=== PATIENT | female | born 1940 | race Caucasian/White ===

== ENCOUNTER → 2017-06-16 | Outpatient (CLI) | payer MEDICARE, OTHER ==
[~2017-06-16] MED LIST: AMBEREN; ARTIFICIAL TEA1 EAC1 OPHTHALMIC; B12INJ; BUSPIRONE HCL5 MG PO; BYSTOLIC 5 MG5 M1 PO; BYSTOLIC10 MG PO; CATAPRES0.1 MG PO; CENTRUM SILVER1 EAC4 PO; CITRACAL + D C1 EACH; CLONIDINE0.1 PO; DORZOLAMIDE HCL10 ML OP; FISHOIL; HYDRALAZINE 2525 MG PO; IRON; LATANOPROST 0.2.5 ML OP; LISINOPRIL10 MG; LUMIGAN2.5 M1; MACROBID 100 M100 M1 PO; MIRALAX17 GM PO; NEXIUM40 MG PO; NORVASC 5 MG TAB5 MG PO; NORVASC5 MG PO; PERCOCET 5-3251 EACH PO; PYRIDIUM200 M1 PO; REGLAN 10 MG TA10 MG PO; SYNTHROID75 MCG; SYNTHROID75 MCG PO; SYSTANE BALANCE10 ML OP; TOPROL XL50 MG; TRAVATAN Z2.5 ML OPHTHALMIC; TRUSOPT OCUMETE10 M1; TUMS PO; VITAMIN B-12500 MCG PO; XANAX 0.25 MG0.25 MG PO; ZOCOR 10 MG TAB10 MG PO
== END ==
LOC: M.RAD 16:25
DX: M25.522 Pain in left elbow (principal); K21.9 Gastro-esophageal reflux disease without esophagitis; I10 Essential (primary) hypertension; E03.9 Hypothyroidism, unspecified; F41.1 Generalized anxiety disorder

== ENCOUNTER 2018-09-15 12:39 | Emergency (ER) | payer MEDICARE, OTHER ==
[~2018-09-15] VITALS: Ht 162.6 cm; Wt 70.3 kg
[2018-09-15] MEDS ORDERED: ZOFRAN ODT4 MG PO (13:57)
[2018-09-15] MEDS ORDERED: AUGMENTIN 500-1 EACH PO (13:57)
[2018-09-15 14:24] VITALS: BP 134/63
--- NOTE | 2018-09-15 16:12 | EKG ---
[place] [address] ELECTROCARDIOGRAM REPORT Name: CHANDU CASONENE Room: [facility]#: [id number] Admission: 09/15/18 Attend Phys: Discharge: 09/15/18 Date of : 40 Report #: [id number] THIS REPORT FOR: //name// [facility] ED Test Date: 2018-09-15 Test Time: 13:13:09 Pat Name: ARIEL CASON Department: Room: Gender: F Machine Finisher: MAURO : 1940 Requested By: Bandar Guerra Order Number: [id number] MD: Bean Lauren Measurements Intervals [place] Rate: 74 P: 46 MI: 154 QRS: 3 QRSD: 103 T: 29 QT: 400 QTc: 444 Interpretive Statements Sinus rhythm Abnormal R-wave progression, early transition Compared to ECG 06/18/2015 13:41:35 No significant changes Electronically Signed On 09-15-2018 16:12:10 CDT by Bean Lauren [email or web address] <ELECTRONICALLY SIGNED> By: Bean Lauren MD, [facility] 09/15/18 1612 1313 12 Bean Lauren MD, FACC /EPI
== END 2018-09-15 14:10 | disposition home or self-care (01) ==
LOC: M.ERS 12:39
DX: R11.2 Nausea with vomiting, unspecified (principal); T37.8X5A Adverse effect of other specified systemic anti-infectives and antiparasitics, initial encounter; N39.0 Urinary tract infection, site not specified; K64.9 Unspecified hemorrhoids; I10 Essential (primary) hypertension; E78.5 Hyperlipidemia, unspecified; E03.9 Hypothyroidism, unspecified; Z88.2 Allergy status to sulfonamides; Z88.1 Allergy status to other antibiotic agents; Y92.89 Other specified places as the place of occurrence of the external cause

== ENCOUNTER 2019-02-15 13:21 | Inpatient (IN) | payer MEDICARE, OTHER ==
[~2019-02-15] VITALS: Ht 162.6 cm; Wt 74.4 kg
[~2019-02-15 13:21] MED LIST changes: +AUGMENTIN 500-1 EACH PO; -NORVASC 5 MG TAB5 MG PO; +ZOFRAN ODT4 MG PO
[2019-02-15 13:25] VITALS: BP 181/75
[2019-02-15 13:46] LABS: ABSOLUTE EOSINOPHILS 0.2 thou/uL (0.0-0.7); ABSOLUTE LYMPHOCYTES 2.1 thou/uL (0.8-5.3); ABSOLUTE MONOCYTES 0.5 thou/uL (0.0-1.2); ABSOLUTE NEUTROPHILS 3.7 thou/uL (1.6-8.1); BASOPHILS 0.3 %; EOSINOPHILS 3.4 %; HEMATOCRIT 43.8 % (37.0-47.0); HEMOGLOBIN 14.5 gm/dL (12.0-15.0); LYMPHOCYTES 32.5 %; MCH 29.2 pg (26.0-34.0); MCHC 33.1 g/dL (28.0-37.0); MONOCYTES 7.2 %; MPV 7.6 fl. (7.2-11.1); NUCLEATED RBCS 0 /100WBC; PLATELET COUNT* 304 thou/uL (150-400); POLYS 56.6 %; RBC 4.97 mil/uL (4.20-5.00); RDW-CV 14.9 % (10.5-14.5); WBC 6.5 thou/uL (4.0-11.0)
[2019-02-15 13:55] LABS: CALCIUM 9.2 mg/dL (8.5-10.1); CREATININE 0.9 mg/dL (0.6-1.3); POTASSIUM 3.5 mmol/L (3.5-5.1)
[2019-02-15 14:07] LABS: ALBUMIN 4.1 g/dL (3.4-5.0); MAGNESIUM 2.1 mg/dL (1.8-2.4); TOTAL BILIRUBIN 0.4 mg/dL (<0.1-1.0)
--- NOTE | 2019-02-15 14:42 | EKG ---
[place] [address] ELECTROCARDIOGRAM REPORT Name: CHANDU CASONENE Room: [facility]#: [id number] Admission: 02/15/19 Attend Phys: Discharge: Date of : 40 Report #: [id number] THIS REPORT FOR: //name// [facility] ED Test Date: 2019-02-15 Test Time: 13:28:55 Pat Name: ARIEL CASON Department: Room: Gender: F Shop Coordinator: NIELS : 1940 Requested By: Maycol Chow Order Number: [id number] MD: Bean Lauren Measurements Intervals [place] Rate: 76 P: 55 WA: 153 QRS: 10 QRSD: 99 T: 38 QT: 379 QTc: 427 Interpretive Statements Sinus rhythm Sinus pause Minimal ST depression, lateral leads Compared to ECG 09/15/2018 13:13:09 Sinus pause now present ST (T wave) deviation now present Electronically Signed On 02-15-2019 14:42:45 WAFER MACHINE OPERATOR by Bean Lauren [email or web address] <ELECTRONICALLY SIGNED> By: Bean Lauren MD, [facility] 02/15/19 1442 1328 132 Bean Lauren MD, FACC /EPI
[2019-02-15 17:51] VITALS: BP 125/60
[2019-02-15 18:00] VITALS: BP 148/79; BP 155/78; BP 167/66
[2019-02-15 20:30] VITALS: BP 125/53
[2019-02-16] VITALS: BP 94/40
[2019-02-16 04:30] VITALS: BP 113/52
[2019-02-16 05:41] LABS: HEMATOCRIT 37.4 % (37.0-47.0); MCH 28.7 pg (26.0-34.0); MCHC 32.6 g/dL (28.0-37.0); MCV 88.1 fL (80.0-100.0); RBC 4.25 mil/uL (4.20-5.00); WBC 5.5 thou/uL (4.0-11.0)
[2019-02-16 05:51] LABS: HEMOGLOBIN 12.2 gm/dL (12.0-15.0)
[2019-02-16 05:55] LABS: ANION GAP 6 mmol/L (7-16); BUN 22 mg/dL (7-18); CALCIUM 8.7 mg/dL (8.5-10.1); CHLORIDE 108 mmol/L (98-107); CHOLESTEROL 164 mg/dL (<200); CO2 27 mmol/L (21-32); GLUCOSE 103 mg/dL (70-99); HDL CHOLESTEROL 41 mg/dL (>40); LDL CHOLESTEROL 95 mg/dL (<100); MAGNESIUM 2.2 mg/dL (1.8-2.4); POTASSIUM 3.6 mmol/L (3.5-5.1); SODIUM 141 mmol/L (136-145); TRIGLYCERIDE 142 mg/dL (<150); VLDL 28 mg/dL (<40)
[2019-02-16 05:57] LABS: SERUM ASSESSMENT Clear
[2019-02-16 08:00] VITALS: BP 120/50
[2019-02-16 12:00] VITALS: BP 114/54
[2019-02-16 17:32] VITALS: BP 115/43
--- NOTE | 2019-02-16 17:32 | 2DMMODE ---
[place] [address] 2 D/M-MODE ECHOCARDIOGRAM Name: CASON,ARIEL Room: [place] [address] ADM IN [facility]#: [id number] Admission: 02/15/19 Attend Phys: Mary Mccoy, Discharge: Date of : 40 Date of Service: 02/16/19 1732 Report #: [id number] THIS REPORT FOR: //name// APPROVED REPORT Study performed: 02/16/2019 13:58:17 EXAM: Comprehensive 2D, Doppler, and color-flow Echocardiogram Patient Location: In-Patient Room #: [facility] Status: routine BSA: 1.80 HR: 70 bpm BP: 113/52 mmHg Rhythm: NSR Other Information Study Quality: Good Indications Chest Pain 2D Dimensions IVSd: 9.29 (7-11mm) LVOT Diam: 20.00 (18-24mm) LVDd: 46.52 mm PWd: 9.47 (7-11mm) Ascending Ao: 30.46 (22-36mm) LVDs: 29.33 (25-40mm) Aortic Root: 30.65 mm Volumes Left Atrial Volume (Systole) LA ESV Index: 31.80 mL/m2 Aortic Valve AoV Peak Luis.: 1.28 m/s AO Peak Gr.: 6.59 mmHg LVOT Max P.77 mmHg AO Mean Gr.: 2.97 mmHg LVOT Mean P.57 mmHg LVOT Max V: 1.20 m/s AO V2 VTI: 22.51 cm LVOT Mean V: 0.73 m/s SHANTI (VTI): 3.48 cm2 LVOT V1 VTI: 24.89 cm AI Otero: 2.20 m/s2 AI PHT: 474.24 ms Mitral Valve E/A Ratio: 0.66 [place] [address] 2 D/M-MODE ECHOCARDIOGRAM Name: ARIEL CASON Room: [address] IN [facility]#: [id number] Admission: 02/15/19 Attend Phys: Mary Mccoy, Discharge: Date of : 40 Date of Service: 02/16/19 1732 Report #: [id number] MV Decel. Time: 252.78 ms MV E Max Luis.: 0.63 m/s MV PHT: 73.31 ms MVA (PHT): 3.00 cm2 TDI E/Lateral E': 5.73 E/Medial E': 7.00 Medial E' Luis.: 0.09 m/s Lateral E' Luis.: 0.11 m/s Pulmonary Valve PV Peak Luis.: 0.81 m/s PV Peak Gr.: 2.62 mmHg Tricuspid Valve RAP Estimate: 5.00 mmHg TR Peak Gr.: 23.35 mmHg RVSP: 28.00 mmHg PA Pressure: 28.00 mmHg Left Ventricle The left ventricle is normal size. There is normal LV segmental wall motion. There is normal left ventricular wall thickness. Left ventricular systolic function is normal. The left ventricular ejection fraction is within the normal range. LVEF is 60-65%. Grade I - abnormal relaxation pattern. Right Ventricle The right ventricle is normal size. The right ventricular systolic function is normal. Atria The left atrium size is normal. Interatrial septum is intact without evidence of ASD or PFO. The right atrium size is normal. Aortic Valve Mild aortic valve sclerosis. Mild aortic regurgitation. There is no aortic valvular stenosis. Mitral Valve The mitral valve is normal in structure. Trace mitral regurgitation. No evidence of mitral valve stenosis. Tricuspid Valve The tricuspid valve is normal in structure. Mild tricuspid regurgitation[place] [address] 2 D/M-MODE ECHOCARDIOGRAM Name: ARIEL CASON Room: [address] IN [facility]#: [id number] Admission: 02/15/19 Attend Phys: Mary Mccoy, Discharge: Date of : 40 Date of Service: 02/16/19 1732 Report #: [id number] The pulmonary valve is normal in structure. There is no pulmonic valvular regurgitation. Great Vessels The aortic root is normal in size. IVC is normal in size and collapses >50% with inspiration. Pericardium There is no pericardial effusion. <Conclusion> The left ventricle is normal size. There is normal left ventricular wall thickness. Left ventricular systolic function is normal. The left ventricular ejection fraction is within the normal range. LVEF is 60-65%. Grade I - abnormal relaxation pattern. The right ventricle is normal size. The left atrium size is normal. Mild aortic valve sclerosis. Mild aortic regurgitation. There is no aortic valvular stenosis. The mitral valve is normal in structure. The tricuspid valve is normal in structure. Mild tricuspid regurgitation. IVC is normal in size and collapses >50% with inspiration. There is no pericardial effusion. There is normal LV segmental wall motion. Interatrial septum is intact without evidence of ASD or PFO. <ELECTRONICALLY SIGNED> By: Bean Lauren MD, FACC 02/16/19 [phone] Bean Lauren MD, FACC /INF
[2019-02-16 20:10] VITALS: BP 157/70
[2019-02-17] VITALS (18 sets, daily range): BP systolic 91–161; BP diastolic 41–71
--- NOTE | 2019-02-17 14:18 | CARD ---
[address] [address] CARDIAC CATH REPORT Name: ARIEL CASON Room: [place] [address] ADM [place] .R.#: [id number] Admission: 02/15/19 Attend Phys: Mary Mccoy MD Discharge: Date of : 40 Report #: [id number] THIS REPORT FOR: //name// APPROVED REPORT Study performed: 02/17/2019 12:22:55 Patient Details Patient Status: In-Patient Room #: The patient is a 78 year-old female Event Personnel Bean Lauren Cryptologist, Jazmyn Veronica RN Course Developer, Rod Ring RTR Scrub, Mayo Johnston Scrub, Yuni Mcgill RTR Monitor Procedures Performed Art Access - R femoral artery, Left Heart Cath w/or w/o Coronaries LHC, Hemostasis with Manual pressure Indication Chest pain Risk Factors Hypercholesterolemia, Hypertension Procedure Narrative The patient was brought electively to the Cardiac Catheterization Laboratory and was prepped and draped in a sterile manner. The right femoral groin area was infiltrated with 2% Lidocaine subcutaneous anesthesia. A [place] 6 FR sheath was inserted into the right femoral artery. Coronary angiography was performed using coronary diagnostic catheters. The right coronary system was accessed and visualized with a 6F JR4 catheter. The left coronary system was accessed and visualized with a 6F JL4 catheter. The left ventricle was accessed and visualized with a 6F Pigtail catheter. Left ventricular/Aortic Valve gradient assessed via catheter pullback. Left ventriculogram was performed in HONG projection. Pre-demployment femoral angiogram was performed . Hemostasis was obtained with manual pressure following sheath removal without any complications. The patient tolerated the procedure well and there were no complications associated with the procedure. There was no hematoma. Intraoperative Conscious Sedation Sedation start time: 13:03 Case end Time: [place] [address] CARDIAC CATH REPORT Name: ARIEL CASON Room: [address] IN [facility]#: [id number] Admission: 02/15/19 Attend Phys: Mary Mccoy MD Discharge: Date of : 40 Report #: [id number] 13:27 Fentanyl 50 mcg Versed 3 mg Fluoro Time: 2.8 minutes Dose: DAP 94525 cGycm2 418 mGy Contrast Type and Amount: Visipaque 80 ml Coronary Angiography The patient's coronary anatomy is right dominant. Diagnostic Cath Left Main 0% narrowing LAD 30% mid LAD narrowing Circumflex 0% narrowing Right Coronary 30% proximal narrowing Left Ventriculography The left ventricle is normal in size with normal contractility. The left ventricular ejection fraction is estimated to be 65%. Left ventricular wall motion abnormalities are not present. There is no mitral insufficiency. Hemodynamics The aortic pressure is 129/48 mmHg with a mean of 79 mmHg. The left ventricular pressure is 136/0 mmHg with a mean of mmHg. The left ventricular end diastolic pressure is 7 mmHg. There was no gradient across the aortic valve upon pullback. Conclusion #1 mild coronary artery disease characterized by the following: A 30% mid LAD narrowing B 30% proximal right coronary narrowing, this being a dominant vessel #2 normal left ventricular systolic function, estimate ejection fraction being 65% #3 normal left-sided hemodynamics study Recommendations Cardiac [place] [address] CARDIAC CATH REPORT Name: ARIEL CASON Room: [address] IN [facility]#: [id number] Admission: 02/15/19 Attend Phys: Mary Mccoy MD Discharge: Date of : 40 Report #: [id number] Diagnostic Cath Approved by: Bean Lauren MD Date/Time: 02/17/2019 14:17:54 <ELECTRONICALLY SIGNED> By: Bean Lauren MD, FACC 02/17/19 1418 1418 1418Bean Lauren MD, FACC /INF
[2019-02-18] VITALS (11 sets, daily range): BP systolic 98–188; BP diastolic 50–73
[2019-02-19 04:30] VITALS: BP 111/57
[2019-02-19 08:00] VITALS: BP 173/74
[2019-02-19 09:49] VITALS: BP 173/74
[2019-02-19 12:00] VITALS: BP 152/51
[2019-02-19] MEDS ORDERED: BUTALB-APAP-CA1 EACH PO (15:34)
[2019-02-19 15:53] VITALS: BP 151/60
== END 2019-02-19 16:52 | disposition home or self-care (01) | DRG 287 ==
LOC: M.ERS 13:21 → M.TBA-ER 15:27 → M.2W 15:27
PROVIDERS: Emergency Medicine Emergency Medical Services; ADMIT Internal Medicine
PROC: 4A023N7 Measurement of Cardiac Sampling and Pressure, Left Heart, Percutaneous Approach (ICD-10-PCS; principal; 2019-02-17)
PROC: B2151ZZ Fluoroscopy of Left Heart using Low Osmolar Contrast (ICD-10-PCS; principal; 2019-02-17)
PROC: B2111ZZ Fluoroscopy of Multiple Coronary Arteries using Low Osmolar Contrast (ICD-10-PCS; principal; 2019-02-17)
PROC: B41F1ZZ Fluoroscopy of Right Lower Extremity Arteries using Low Osmolar Contrast (ICD-10-PCS; principal; 2019-02-17)
DX: I25.10 Atherosclerotic heart disease of native coronary artery without angina pectoris (principal); I10 Essential (primary) hypertension; E78.5 Hyperlipidemia, unspecified; G43.909 Migraine, unspecified, not intractable, without status migrainosus; E03.9 Hypothyroidism, unspecified; Z90.710 Acquired absence of both cervix and uterus; Z85.59 Personal history of malignant neoplasm of other urinary tract organ; Z88.2 Allergy status to sulfonamides; Z88.8 Allergy status to other drugs, medicaments and biological substances; Z82.49 Family history of ischemic heart disease and other diseases of the circulatory system

== ENCOUNTER → 2020-08-03 | Outpatient (CLI) | payer MEDICARE, OTHER ==
[~2020-08-03] MED LIST changes: +BUTALB-APAP-CA1 EACH PO
== END ==
LOC: M.MRI 11:13
PROVIDERS: ATTEND Internal Medicine
DX: I67.82 Cerebral ischemia (principal)